=== PATIENT | female | born 1950 | race African-American/Black ===

== ENCOUNTER 2017-03-11 12:35 | Emergency (ER) | payer MEDICARE, OTHER ==
[~2017-03-11] VITALS: Ht 149.9 cm; Wt 63.6 kg
[~2017-03-11 12:35] MED LIST: BENICAR 20MG TA20 MG PO; BENICAR HCT 12.1 TAB PO; EXFORGE; GLUCOPHAGE500 MG/TAB PO; HCTZ12.5TAB PO; INDERAL 20MG20 MG PO; METFORMIN HCL500 M1 PO; METHIMAZOLE; NO HOME MEDICATIONS; PRILOSEC 20MG20 MG PO; TOPROL XL25 MG PO; TOPROL XL50 MG PO
[2017-03-11 12:38] VITALS: TEMP 98.3
[2017-03-11 13:29] LABS: BASO # 0.1 (0.0-0.2); EOS # 0.1 (0.0-0.7); EOS % 1.2 % (0-4.0); GRAN # 4.7 (1.4-6.5); GRAN % 64.6 % (42.2-75.2); LYMPH # 1.8 (1.2-3.4); LYMPH % 24.7 % (20.0-51.0); MEAN CELL VOLUME 72 fl (80.0-100.0); MEAN CORPUSCULAR HGB CONC 32 g/dl (33.0-37.0); MONO # 0.6 (0.1-0.6); MONO % 8.4 % (1.7-9.3); PLATELET COUNT 280 K/mm3 (130-400); RED BLOOD COUNT 4.93 M/mm3 (4.10-5.30); WHITE BLOOD COUNT 7.3 K/mm3 (4.8-10.8)
[2017-03-11] MEDS ORDERED: HYGROTON 2525 MG/TAB PO (13:29)
[2017-03-11 13:30] LABS: HEMATOCRIT 35.5 % (37.0-47.0); HEMOGLOBIN 11.2 g/dl (12.5-16.0); MEAN CORPUSCULAR HEMOGLOBIN 23 pg (27.0-31.0)
[2017-03-11 13:36] LABS: ADJUSTED CALCIUM 10.1 mg/dL (8.4-10.2); ALANINE AMINOTRANSFERASE 26 U/L (9-52); ALBUMIN 4.9 gm/dL (3.5-5.0); ALKALINE PHOSPHATASE 104 U/L (50-136); ANION GAP 15 mmol/L (7-16); BILIRUBIN,TOTAL 0.5 mg/dL (0.0-1.0); BLOOD UREA NITROGEN 24 mg/dL (7-17); CALCIUM 10.8 mg/dL (8.4-10.2); CARBON DIOXIDE 25 mmol/L (22-30); CHLORIDE 99 mmol/L (98-107); CREATININE, serum 1.17 mg/dL (0.52-1.25); GLUCOSE 162 mg/dL (74-106); POTASSIUM 3.2 mmol/L (3.4-5.0); SODIUM 138 mmol/L (137-145); TOTAL PROTEIN 8.7 gm/dL (6.4-8.2)
[2017-03-11 13:48] LABS: TROPONIN-I < 0.012 ng/mL (0.000-0.034)
[2017-03-11] MEDS ORDERED: NORVASC 5MG5 MG/TAB PO (15:14)
[2017-03-11 15:35] VITALS: BP 159/65; PULSE 72
== END 2017-03-11 15:37 | disposition home or self-care (01) ==
LOC: COL.ER 12:35
PROVIDERS: Emergency Medicine
DX: I10 Essential (primary) hypertension (principal); F41.9 Anxiety disorder, unspecified; E11.9 Type 2 diabetes mellitus without complications; Z79.84 Long term (current) use of oral hypoglycemic drugs
CPT/HCPCS: J7030

== ENCOUNTER 2017-03-12 02:06 | Emergency (ER) | payer MEDICARE, OTHER ==
[~2017-03-12] VITALS: Ht 149.9 cm; Wt 65.9 kg
[~2017-03-12 02:06] MED LIST changes: +HYGROTON 2525 MG/TAB PO; +NORVASC 5MG5 MG/TAB PO
[2017-03-12 02:08] VITALS: TEMP 98
[2017-03-12 03:31] VITALS: BP 178/88; PULSE 81
== END 2017-03-12 03:33 | disposition home or self-care (01) ==
LOC: COL.ER 02:06
DX: I10 Essential (primary) hypertension (principal); E11.9 Type 2 diabetes mellitus without complications; Z90.49 Acquired absence of other specified parts of digestive tract; Z90.89 Acquired absence of other organs; Z79.84 Long term (current) use of oral hypoglycemic drugs

== ENCOUNTER 2017-03-16 06:24 | Emergency (ER) | payer MEDICARE, OTHER ==
[~2017-03-16] VITALS: Ht 149.9 cm; Wt 63.6 kg
[2017-03-16 06:27] VITALS: TEMP 97.7
[2017-03-16 07:22] LABS: BASO # 0.1 (0.0-0.2); EOS # 0.1 (0.0-0.7); EOS % 1.1 % (0-4.0); GRAN # 3.6 (1.4-6.5); GRAN % 58.2 % (42.2-75.2); LYMPH # 1.7 (1.2-3.4); LYMPH % 27.8 % (20.0-51.0); MEAN CELL VOLUME 71 fl (80.0-100.0); MEAN CORPUSCULAR HGB CONC 32 g/dl (33.0-37.0); MEAN PLATELET VOLUME 10.6 fl (7.4-10.4); MONO # 0.7 (0.1-0.6); MONO % 11.7 % (1.7-9.3); PLATELET COUNT 296 K/mm3 (130-400); RED BLOOD COUNT 4.81 M/mm3 (4.10-5.30); REDCELL DISTRIBUTION WIDTH-CV 13.7 % (11.5-14.5)
[2017-03-16 07:23] LABS: HEMOGLOBIN 10.9 g/dl (12.5-16.0); MEAN CORPUSCULAR HEMOGLOBIN 23 pg (27.0-31.0)
[2017-03-16 07:36] LABS: ALANINE AMINOTRANSFERASE 33 U/L (9-52); ALBUMIN 4.8 gm/dL (3.5-5.0); ALKALINE PHOSPHATASE 88 U/L (50-136); ANION GAP 14 mmol/L (7-16); AST,SGOT 32 U/L (15-37); BILIRUBIN,TOTAL 0.6 mg/dL (0.0-1.0); BLOOD UREA NITROGEN 42 mg/dL (7-17); CALCIUM 10.3 mg/dL (8.4-10.2); CARBON DIOXIDE 23 mmol/L (22-30); CHLORIDE 97 mmol/L (98-107); CREATININE, serum 1.61 mg/dL (0.52-1.25); GLUCOSE 162 mg/dL (74-106); POTASSIUM 3.2 mmol/L (3.4-5.0); SODIUM 134 mmol/L (137-145); TOTAL PROTEIN 8.6 gm/dL (6.4-8.2)
[2017-03-16 07:51] LABS: TROPONIN-I < 0.012 ng/mL (0.000-0.034)
[2017-03-16 08:06] LABS: THYROID STIMULATING HORMONE 0.274 uIU/mL (0.465-4.680)
[2017-03-16] MEDS ORDERED: ATIVAN 0.50.5 MG/TAB PO (08:15)
[2017-03-16 09:25] VITALS: BP 161/85; PULSE 69
== END 2017-03-16 09:40 | disposition home or self-care (01) ==
LOC: COL.ER 06:24
PROVIDERS: Emergency Medicine
DX: R00.2 Palpitations (principal); E11.9 Type 2 diabetes mellitus without complications; I10 Essential (primary) hypertension; Z79.84 Long term (current) use of oral hypoglycemic drugs